=== PATIENT | male | born 1940 | race Caucasian/White ===

== ENCOUNTER 2016-10-06 14:55 | Inpatient (IN) | payer OTHER ==
[~2016-10-06] VITALS: Ht 177.8 cm; Wt 110.1 kg
[~2016-10-06 14:55] MED LIST: omega red PO
[2016-10-06] MEDS ORDERED: ONDANSETRON INJ 2 MG/ML 2 ML VIAL IV STA (15:29)
[2016-10-06] MEDS ORDERED: SODIUM CHLORIDE 0.9% 1000ML 1,000 ML IV STA (15:29)
--- NOTE | 2016-10-06 15:47 | DIAGNOSTIC IMAGING REPORT ---
CHEST ONE VIEW PORTABLE CLINICAL HISTORY: Cough. COMPARISON STUDY: Chest radiograph August 01, 2015. FINDINGS: There is no pneumothorax or pleural effusion. Left lower lung consolidation is present. Mild cardiomegaly is unchanged. Apparent right infrahilar opacity is noted. IMPRESSION: Left lower lung consolidation suggestive of pneumonia. Radiographic follow up to ensure resolution is recommended. Equivocal right infrahilar opacity. Electronically signed by: Hernando Vargas M.D. 10/06/2016 3:46 PM Dictated Date/Time: 10/06/2016 3:45 PM
[2016-10-06 16:00] LABS: BASO % 0.1 %; BASO ABS # 0.02 K/uL (0-0.2); COMPLETE YES; EOS % 0.3 %; HEMATOCRIT 42.6 % (42-52); IG% 0.3 %; LYMPH % 5.3 %; LYMPH ABS # 0.85 K/uL (1.2-3.4); MEAN CORPUSCULAR HEMOGLOBIN 28.5 pg (25-34); MEAN CORPUSCULAR HGB CONC 34.3 g/dl (32-36); MEAN PLATELET VOLUME 8.8 fL (7.4-10.4); MONO % 7.2 %; NEUT % 86.8 %; PLATELET COUNT 193 K/uL (130-400); RED BLOOD COUNT 5.13 M/uL (4.7-6.1); WHITE BLOOD COUNT 15.96 K/uL (4.8-10.8)
--- NOTE | 2016-10-06 16:15 | DIAGNOSTIC IMAGING REPORT ---
CT HEAD WITHOUT CONTRAST (CT) CLINICAL HISTORY: Headache, dizziness, confusion. Nausea. COMPARISON STUDY: No previous studies for comparison. TECHNIQUE: Axial CT of the brain is performed from the vertex to the skull base. IV contrast was not administered for this examination. CT DOSE: FINDINGS: No intra or extra-axial mass lesions are visualized. There is no CT evidence of acute cortical infarction. There is no evidence of midline shift. There is no acute hemorrhage. No calvarial fractures are visualized. There are patchy white matter hypodensities likely on a small vessel basis. There is no evidence of pathologic ventricular dilatation. There is no evidence of acute sinusitis There is a tortuous right vertebral artery with mild secondary mass effect on the craniocervical junction. IMPRESSION: No acute intracranial findings Electronically signed by: Duane Prado M.D. 10/06/2016 4:14 PM Dictated Date/Time: 10/06/2016 4:12 PM
[2016-10-06 16:16] LABS: ALT/SGPT 27 U/L (12-78); AST/SGOT 22 U/L (15-37); BLOOD UREA NITROGEN 21 mg/dl (7-18); BUN/CREATININE RATIO 13.8 (10-20); CALCIUM 8.4 mg/dl (8.5-10.1); CARBON DIOXIDE 24 mmol/L (21-32); CHLORIDE 108 mmol/L (98-107); GLUCOSE 105 mg/dl (70-99); SODIUM 141 mmol/L (136-145)
[2016-10-06 16:19] LABS: ALKALINE PHOSPHATASE 101 U/L (45-117)
--- NOTE | 2016-10-06 16:21 | DIAGNOSTIC IMAGING REPORT ---
CT SCAN OF THE ABDOMEN AND PELVIS WITHOUT IV CONTRAST CLINICAL HISTORY: Generalized abdominal pain status post colonoscopy. COMPARISON STUDY: No priors. TECHNIQUE: CT scan of the abdomen and pelvis is performed from the lung bases to the proximal femora. Images are reviewed in the axial, sagittal, and coronal planes. IV contrast was not administered for this examination. Automated dose control exposure was utilized. CT DOSE: 2027.78 mGy.cm FINDINGS: Lung bases: The heart is mildly enlarged and without pericardial effusion. There are coronary artery calcifications. There is patchy airspace consolidation at the left lung base. Dependent atelectasis is seen at the right lung base. No pleural effusion is identified. There is a small hiatal hernia. Liver: The unenhanced liver is normal in size and contour. The liver demonstrates diffusely diminished attenuation consistent with hepatic steatosis. Fatty sparing is identified adjacent to the gallbladder fossa. There is no intrahepatic biliary ductal dilatation. Gallbladder: Small calcified gallstones are observed. There is no CT evidence of acute cholecystitis. Spleen: Normal in size and attenuation. Pancreas: The unenhanced pancreas is moderately atrophic and grossly unremarkable. Adrenal glands: Unremarkable. Kidneys: The unenhanced kidneys are atrophic and without hydronephrosis. There are no renal calculi identified. There are bilateral renal cysts. The largest arises from the left lower pole and measures up to 8 cm. Abdominal vasculature: The abdominal aorta is normal in course and caliber noting moderate to advanced atherosclerotic calcification. Bowel: The small bowel and colon are normal in course and caliber. There is advanced sigmoid diverticulosis without CT evidence of acute diverticulitis. Mild diverticular disease is seen throughout the remainder of the colon. The appendix is well-visualized and normal. Peritoneum: There is no intraperitoneal free air or abdominal ascites. There is a fat-containing umbilical hernia. Lymphadenopathy: None. Pelvic viscera: The prostate gland is markedly enlarged and heterogeneous, measuring 7.3 cm in transverse diameter. There is median lobe hypertrophy. The bladder wall is thickened and trabeculated and there are numerous small bladder diverticula indicating chronic obstruction. There is a tiny fat-containing left inguinal hernia. Skeletal structures: The skeletal structures are osteopenic. There is mild lumbosacral spondylosis. Sclerotic change is noted in the sacroiliac joints. No lytic or blastic lesions are seen. IMPRESSION: 1. There is patchy airspace consolidation at the left lung base, likely representing pneumonia/aspiration pneumonitis. 2. There are no acute infectious or inflammatory findings in the abdomen or pelvis. 3. Hepatic steatosis. 4. Cholelithiasis. 5. Advanced sigmoid diverticulosis without CT evidence of acute diverticulitis. 6. Marked prostatomegaly with evidence of chronic bladder outlet obstruction. Follow-up with serum PSA level assessment is recommended. 7. Additional findings as above. Electronically signed by: Flash Gonzales M.D. 10/06/2016 4:20 PM Dictated Date/Time: 10/06/2016 4:13 PM
[2016-10-06] MEDS ORDERED: KRIL1CAP7 PO (16:40)
[2016-10-06] MEDS ORDERED: PIPERACILLIN/TAZOBACTAM 3.375 GM/100ML D5W IV STA (16:42)
[2016-10-06 16:50] LABS: URINE APPEARANCE CLEAR (CLEAR); URINE BILIRUBIN NEG (NEG); URINE COLOR YELLOW; URINE NITRITE NEG (NEG); URINE PH 5.5 (4.5-7.5); URINE SPECIFIC GRAVITY 1.021 (1.000-1.030); UROBILINOGEN NEG (NEG)
[2016-10-06 16:53] LABS: MANUAL MICROSCOPIC REQUIRED? NO; REVIEW REQ? NO
[2016-10-06] MEDS ORDERED: ACETAMINOPHEN 325 MG TAB PO PRN (18:00)
[2016-10-06] MEDS ORDERED: ONDANSETRON INJ 2 MG/ML 2 ML VIAL IV PRN (18:00)
--- NOTE | 2016-10-06 18:22 | EMERGENCY ROOM VISIT NOTE ---
History Report prepared by Marco: Romelia Cohen Under the Supervision of: Dr. Lupe Hatch M.D. First contact with patient: 15:16 Chief Complaint: GI ASSESSMENT Stated Complaint: COLONOSCOPY THIS MORNING, NOT FEELING WELL,HIGH BP Nursing Triage Summary: triage note: pt reports he had a colonoscopy and since getting home at 1230 he has been dizzy and has had chills. pt reports generalized abd and nausea. History of Present Illness The patient is a 76 year old male who presents to the Emergency Room with complaints of constant raw abdominal pain beginning 3 hours ago. The patient states that he had a colonoscopy this morning and since getting home he has been feeling dizziness, chills, and a dull headache. He reports that he has had a colonoscopy before and did not have similar symptoms. The patient's family notes that he had polyps removed and had some bleeding 1 week after his previous colonoscopy. The patient reports that he vomited last night when he was prepping for the colonoscopy and has had a productive pink cough since yesterday. He states that he called his doctor before coming in today and they told him that he was coughing a lot during the colonoscopy and are concerned that he may have aspirated. He states that his last normal bowel movement was yesterday but he did go to the bathroom once after his colonoscopy and it was mostly blood. He estimates that there were 2-3 tablespoons of blood and he has not gone to the bathroom since then. The patient notes that he is not on blood thinners and has not had an appendectomy or cholecystectomy. The patient's daughter notes that the patient has seemed confused since the colonoscopy and struggled to complete everyday tasks such as getting out of the car and getting gas. The patient denies any nausea, chest pain, shortness of breath, weakness, and numbness. Source of History: patient Onset: 3 hours ago Position: abdomen Quality: other (raw) Timing: constant Associated Symptoms: + chills, + cough, + headache, No SOB, No chest pain, No nausea, No numbness, No weakness Note: Pt complains of dizziness and an episode of bloody stool. Review of Systems See HPI for pertinent positives & negatives. A total of 10 systems reviewed and were otherwise negative. Past Medical & Surgical Medical Problems: (1) Aspiration pneumonia (2) BPH (benign prostatic hyperplasia) (3) HLD (hyperlipidemia) (4) HTN (hypertension) (5) UGIB (upper gastrointestinal bleed) Family History No pertinent family history stated. Social History Smoking Status: Former Smoker Alcohol Use: none Drug Use: none Occupation Status: retired Current/Historical Medications Scheduled Carvedilol (Coreg), 1 TAB PO BID Esomeprazole Magnesium (Nexium), 40 MG PO DAILY Finasteride (Proscar), 1 TAB PO DAILY Lisinopril (Zestril), 2.5 MG PO DAILY Simvastatin (Zocor), 1 TAB PO HS Tamsulosin Hcl (Flomax), 1 CAP PO BID Allergies Coded Allergies: Iodinated Diagnostic Agents (Verified Allergy, Mild, Skin peels off, ) Physical Exam Vital Signs Date Time Temp Pulse Resp B/P Pulse Ox O2 Delivery O2 Flow Rate FiO2 10/06/16 18:07 97 32 125/68 94 2.0 10/06/16 16:34 102 10/06/16 16:29 102 36 117/67 93 Nasal Cannula 2.0 10/06/16 15:56 Room Air 2.0 10/06/16 15:54 88 Room Air 10/06/16 15:01 36.9 119 20 119/66 94 Room Air Physical Exam GENERAL: sitting up in bed, alert, well appearing, well nourished, no distress, non-toxic EYE EXAM: normal conjunctiva, PERRL and EOM's intact OROPHARYNX: no exudate, no erythema, lips, buccal mucosa, and tongue normal and mucous membranes are moist NECK: supple, no nuchal rigidity, no adenopathy, non-tender LUNGS: Clear to auscultation. Normal chest wall mechanics HEART: no murmurs, S1 normal and S2 normal ABDOMEN: abdomen soft, non-tender, normo-active bowel sounds, no masses, no rebound or guarding. BACK: Back is symmetrical on inspection and there is no deformity, no midline tenderness, no CVA tenderness. SKIN: no rashes and no bruising UPPER EXTREMITIES: upper extremities are grossly normal. LOWER EXTREMITIES: No pitting edema. NEURO EXAM: Normal sensorium, cranial nerves II-XII intact, normal speech, no weakness of arms, no weakness of legs. No drift. Finger to nose intact. Gross sensation intact. Medical Decision & Procedures ER Provider Diagnostic Interpretation: Radiology results as stated below per my review and the radiologist's interpretation: CT HEAD WITHOUT CONTRAST (CT) FINDINGS: No intra or extra-axial mass lesions are visualized. There is no CT evidence of acute cortical infarction. There is no evidence of midline shift. There is no acute hemorrhage. No calvarial fractures are visualized. There are patchy white matter hypodensities likely on a small vessel basis. There is no evidence of pathologic ventricular dilatation. There is no evidence of acute sinusitis There is a tortuous right vertebral artery with mild secondary mass effect on the craniocervical junction. IMPRESSION: No acute intracranial findings Electronically signed by: Duane Prado M.D. 10/06/2016 4:14 PM Dictated Date/Time: 10/06/2016 4:[address] SCAN OF THE ABDOMEN AND PELVIS WITHOUT IV CONTRAST FINDINGS: Lung bases: The heart is mildly enlarged and without pericardial effusion. There are coronary artery calcifications. There is patchy airspace consolidation at the left lung base. Dependent atelectasis is seen at the right lung base. No pleural effusion is identified. There is a small hiatal hernia. Liver: The unenhanced liver is normal in size and contour. The liver demonstrates diffusely diminished attenuation consistent with hepatic steatosis. Fatty sparing is identified adjacent to the gallbladder fossa. There is no intrahepatic biliary ductal dilatation. Gallbladder: Small calcified gallstones are observed. There is no CT evidence of acute cholecystitis. Spleen: Normal in size and attenuation. Pancreas: The unenhanced pancreas is moderately atrophic and grossly unremarkable. Adrenal glands: Unremarkable. Kidneys: The unenhanced kidneys are atrophic and without hydronephrosis. There are no renal calculi identified. There are bilateral renal cysts. The largest arises from the left lower pole and measures up to 8 cm. Abdominal vasculature: The abdominal aorta is normal in course and caliber noting moderate to advanced atherosclerotic calcification. Bowel: The small bowel and colon are normal in course and caliber. There is advanced sigmoid diverticulosis without CT evidence of acute diverticulitis. Mild diverticular disease is seen throughout the remainder of the colon. The appendix is well-visualized and normal. Peritoneum: There is no intraperitoneal free air or abdominal ascites. There is a fat-containing umbilical hernia. Lymphadenopathy: None. Pelvic viscera: The prostate gland is markedly enlarged and heterogeneous, measuring 7.3 cm in transverse diameter. There is median lobe hypertrophy. The bladder wall is thickened and trabeculated and there are numerous small bladder diverticula indicating chronic obstruction. There is a tiny fat-containing left inguinal hernia. Skeletal structures: The skeletal structures are osteopenic. There is mild lumbosacral spondylosis. Sclerotic change is noted in the sacroiliac joints. No lytic or blastic lesions are seen. IMPRESSION: 1. There is patchy airspace consolidation at the left lung base, likely representing pneumonia/aspiration pneumonitis. 2. There are no acute infectious or inflammatory findings in the abdomen or pelvis. 3. Hepatic steatosis. 4. Cholelithiasis. 5. Advanced sigmoid diverticulosis without CT evidence of acute diverticulitis. 6. Marked prostatomegaly with evidence of chronic bladder outlet obstruction. Follow-up with serum PSA level assessment is recommended. 7. Additional findings as above. Electronically signed by: Flash Gonzales M.D. 10/06/2016 4:20 PM Dictated Date/Time: 10/06/2016 4:13 PM CHEST ONE VIEW PORTABLE FINDINGS: There is no pneumothorax or pleural effusion. Left lower lung consolidation is present. Mild cardiomegaly is unchanged. Apparent right infrahilar opacity is noted. IMPRESSION: Left lower lung consolidation suggestive of pneumonia. Radiographic follow up to ensure resolution is recommended. Equivocal right infrahilar opacity. Electronically signed by: Hernando Vargas M.D. 10/06/2016 3:46 PM Dictated Date/Time: 10/06/2016 3:45 PM Laboratory Results 10/06/16 15:43 Red Blood Count 5.13, Mean Corpuscular Volume 83.0, Mean Corpuscular Hemoglobin 28.5, Mean Corpuscular Hemoglobin Concent 34.3, Mean Platelet Volume 8.8, Neutrophils (%) (Auto) 86.8, Lymphocytes (%) (Auto) 5.3, Monocytes (%) (Auto) 7.2, Eosinophils (%) (Auto) 0.3, Basophils (%) (Auto) 0.1, Neutrophils # (Auto) 13.84, Lymphocytes # (Auto) 0.85, Monocytes # (Auto) 1.15, Eosinophils # (Auto) 0.05, Basophils # (Auto) 0.02 10/06/16 15:43 Test 10/06/16 15:43 10/06/16 16:30 10/06/16 17:47 White Blood Count 15.96 K/uL (4.8-10.8) Red Blood Count 5.13 M/uL (4.7-6.1) Hemoglobin 14.6 g/dL (14.0-18.0) Hematocrit 42.6 % (42-52) Mean Corpuscular Volume 83.0 fL (80-100) Mean Corpuscular Hemoglobin 28.5 pg (25-34) Mean Corpuscular Hemoglobin Concent 34.3 g/dl (32-36) Platelet Count 193 K/uL (130-400) Mean Platelet Volume 8.8 fL (7.4-10.4) Neutrophils (%) (Auto) 86.8 % Lymphocytes (%) (Auto) 5.3 % Monocytes (%) (Auto) 7.2 % Eosinophils (%) (Auto) 0.3 % Basophils (%) (Auto) 0.1 % Neutrophils # (Auto) 13.84 K/uL (1.4-6.5) Lymphocytes # (Auto) 0.85 K/uL (1.2-3.4) Monocytes # (Auto) 1.15 K/uL (0.11-0.59) Eosinophils # (Auto) 0.05 K/uL (0-0.5) Basophils # (Auto) 0.02 K/uL (0-0.2) RDW Standard Deviation 43.7 fL (36.4-46.3) RDW Coefficient of Variation 14.5 % (11.5-14.5) Immature Granulocyte % (Auto) 0.3 % Immature Granulocyte # (Auto) 0.05 K/uL (0.00-0.02) Anion Gap 9.0 mmol/L (3-11) Est Creatinine Clear Calc Drug Dose 52.1 ml/min Estimated GFR () 51.7 Estimated GFR (Non- 44.6 BUN/Creatinine Ratio 13.8 (10-20) Calcium Level 8.4 mg/dl (8.5-10.1) Total Bilirubin 0.5 mg/dl (0.2-1) Direct Bilirubin < 0.1 mg/dl (0-0.2) Aspartate Amino Transf (AST/SGOT) 22 U/L (15-37) Alanine Aminotransferase (ALT/SGPT) 27 U/L (12-78) Alkaline Phosphatase 101 U/L (45-117) Total Protein 7.7 gm/dl (6.4-8.2) Albumin 3.6 gm/dl (3.4-5.0) Lipase 239 U/L (73-393) Urine Color YELLOW Urine Appearance CLEAR (CLEAR) Urine pH 5.5 (4.5-7.5) Urine Specific [place] 1.021 (1.000-1.030) Urine Protein TRACE (NEG) Urine Glucose (UA) NEG (NEG) Urine Ketones NEG (NEG) Urine Occult Blood NEG (NEG) Urine Nitrite NEG (NEG) Urine Bilirubin NEG (NEG) Urine Urobilinogen NEG (NEG) Urine Leukocyte Esterase NEG (NEG) Urine WBC (Auto) 1-5 /hpf (0-5) Urine RBC (Auto) 0-4 /hpf (0-4) Urine Hyaline Casts (Auto) 1-5 /lpf (0-5) Urine Epithelial Cells (Auto) 10-20 /lpf (0-5) Urine Bacteria (Auto) NEG (NEG) Laboratory results per my review. Medications Administered Medications (Trade) Dose Ordered Sig/Eddie Route Start Time Stop Time Status Last Admin Dose Admin Sodium Chloride (Nss 1000ml) 1,000 ml @ 999 mls/hr Q1H1M STAT IV 10/06/16 15:29 10/06/16 16:29 DC 10/06/16 15:49 999 MLS/HR Ondansetron HCl (Zofran Inj) 4 mg NOW STAT IV 10/06/16 15:29 10/06/16 15:32 DC 10/06/16 15:50 4 MG Piperacillin Sod/ Tazobactam Sod (Zosyn Iv) 3.375 gm NOW STAT IV 10/06/16 16:42 10/06/16 16:43 DC 10/06/16 17:01 3.375 GM ECG Indication: abdominal pain Rate (beats per minute): 111 Rhythm: sinus tachycardia Findings: LBBB, left axis deviation, other (normal intervals) Comparison ECG Date: 25-JAN-2016 Change: no significant change ED Course ED COURSE: Vital signs were reviewed and showed tachycardia The patients medical record was reviewed The above diagnostic studies were performed and reviewed. ED treatments and interventions as stated above. 1516: The patient was evaluated in room B5. A complete history and physical examination was performed. 1529: Zofran Inj 4mg IV, Sodium Chloride 1000 ml @ 999 mls/hr IV. 1559: The patient had a 3mm polyp removed and there were several biopsy sites per review of the patient's colonoscopy. 1642: Zosyn IV 3.375gm IV. 1658: I updated and reevaluated the patient. 1716: I reviewed the patient's case with Bhumika Granda. She will evaluate the patient for further management. 1726: Upon reevaluation, the patient is doing well.I discussed my findings with the patient and he understands and agrees with the treatment plan. Based on the patients age, coexisting illnesses, exam and lab findings the decision to treat as an inpatient was made. The patient remained stable while under my care. The patient will be evaluated for further management. Medical Decision Differential diagnoses includes but is not limited to gastritis, peptic ulcer disease, GERD, gallbladder disease, pancreatitis, small bowel obstruction, acute coronary syndrome, pericarditis, ischemic bowel, irritable bowel disease, irritable bowel syndrome, appendicitis, diverticulitis, malignancy, hernia, urinary tract infection, torsion, perforation, trauma, infectious. Medication Reconciliation: I attest that I have personally reviewed the patient' s current medication list. Patient is a 76-year-old male who had a colonoscopy performed by Dr. Contreras from [facility] surgery and had one polyp removed along with several biopsies. Vitals show a tachycardia and mild hypoxia. There was reported coughing throughout the procedure and there is question of aspiration. Chest x-ray and CT of the abdomen does support aspiration pneumonia. I favor this likely cause of symptoms. He did have one bowel movement with 3 large teaspoons of blood. This in combination with the aspiration pneumonia, tachycardia and hypoxia; I felt he would benefit from admission/observation overnight. He was given IV antibiotics and fluids and admitted to internal medicine. Consults Time Called: 170 Consulting Physician: Bhumika Kaiser Returned Call: [phone] I reviewed the patient's case with Bhumika Granda. She will evaluate the patient for further management. Impression Primary Impression: Colonoscopy causing post-procedural bleeding Additional Impression: Aspiration pneumonia Scribe Attestation The scribe's documentation has been prepared under my direction and personally reviewed by me in its entirety. I confirm that the note above accurately reflects all work, treatment, procedures, and medical decision making performed by me. Departure Information Dispostion Being Evaluated By Hospitalist Referrals Jasmin Ross D.O. (PCP) Patient Instructions [facility] Problem Qualifiers Additional Impression: Aspiration pneumonia Aspiration pneumonia type: unspecified Laterality: left Lung location: lower lobe of lung Qualified Codes: J69.0 - Pneumonitis due to inhalation of food and vomit
[2016-10-06 18:33] VITALS: O2SAT 94; Ht 177.8 cm; Wt 110.1 kg
[2016-10-06] MEDS ORDERED: PIPERACILL/TAZOBAC CONSULT ACTIVE PRN (19:00)
[2016-10-06] MEDS ORDERED: LISI-729 PO (19:53)
[2016-10-06] MEDS ORDERED: ASPI81TA28 PO (19:54)
[2016-10-06] MEDS ORDERED: CARV12.5 PO (19:54)
[2016-10-06] MEDS ORDERED: SIMV10TA2 PO (19:54)
[2016-10-06 19:55] VITALS: BP 112/64; PULSE 88; TEMP 36.5; O2SAT 93
[2016-10-06] MEDS ORDERED: NIAC1TAB59 PO (19:55)
[2016-10-06] MEDS ORDERED: FINA5TAB4 PO (19:55)
[2016-10-06] MEDS ORDERED: NXM/40 PO (19:56)
[2016-10-06] MEDS ORDERED: CHOL20007 PO (19:56)
[2016-10-06] MEDS ORDERED: TAMS0.4C38 PO (19:56)
[2016-10-06] MEDS ORDERED: DOCU-94 PO (20:02)
[2016-10-06] MEDS: SODIUM CHLORIDE 0.9% 1000ML 1,000 ML IV SCH (20:13)
[2016-10-06] MEDS: CARVEDILOL 12.5 MG TAB PO SCH (20:16)
[2016-10-06] MEDS: TAMSULOSIN HCL 0.4 MG CAP PO SCH (20:17)
[2016-10-06] MEDS: SIMVASTATIN 10 MG TAB PO SCH ×2 (20:18→21:39)
--- NOTE | 2016-10-06 20:44 | History and Physical ---
History & Physical Date & Time of Service: October 06, 2016 ~ 17:30 Chief Complaint: Cough Primary Care Physician: Jasmin Ross D.O. History of Present Illness 76 year old male who presents to the ER with cough. Patient underwent a colonoscopy today for polyp follow up. Patient reports that while completing the prep yesterday his stomach felt very full. He reports he felt nauseous and had 3 episodes of vomiting. He reports being up most of the night due to persistent coughing. He was able to have the procedure done however was told he had a lot of coughing during the procedure as well. Patient reports he went home and started to feel poorly. He reports the cough was productive for a blood tinged mucous. He reports a mild frontal headache and mild generalized abdominal pain. He felt chilled but did not take his temperature. He denies chest pain or shortness of breath. No further vomiting. He denies nausea. No lightheadedness, dizziness, diaphoresis, or syncopal event. He reports chronic urinary frequency and hesitancy which is unchanged. In the ER, patient was hypoxic on room air at 88% which improved with 2L oxygen via NC. CXR is showing LLL consolidation. CT abd/pelvis is negative for acute findings. Creat is found to be 1.5 (normal baseline). WBC 15K. He was also tachycardic and tachypneic. He was given IVF, IV Zosyn, and Zofran. Past Medical/Surgical History Medical Problems: (1) BPH (benign prostatic hyperplasia) Status: Chronic (2) HLD (hyperlipidemia) Status: Chronic (3) HTN (hypertension) Status: Chronic Family History Hypertension Social History Smoking Status: Former Smoker Alcohol Use: none Allergies Coded Allergies: Iodinated Diagnostic Agents (Verified Allergy, Mild, Skin peels off, ) Home Medications Scheduled Carvedilol (Coreg), 1 TAB PO BID Esomeprazole Magnesium (Nexium), 40 MG PO DAILY Finasteride (Proscar), 1 TAB PO DAILY Lisinopril (Zestril), 2.5 MG PO DAILY Simvastatin (Zocor), 1 TAB PO HS Tamsulosin Hcl (Flomax), 1 CAP PO BID Review of Systems ROS per HPI, all other systems reviewed and negative Physical Exam Vital Signs Date Time Temp Pulse Resp B/P Pulse Ox O2 Delivery O2 Flow Rate FiO2 10/06/16 19:55 36.5 88 18 112/64 93 Nasal Cannula 2.0 10/06/16 19:33 90 24 115/63 94 2.0 10/06/16 19:33 90 24 115/63 94 10/06/16 18:33 94 Nasal Cannula 2.0 10/06/16 18:07 97 32 125/68 94 2.0 10/06/16 16:34 102 10/06/16 16:29 102 36 117/67 93 Nasal Cannula 2.0 10/06/16 15:56 Room Air 2.0 10/06/16 15:54 88 Room Air 10/06/16 15:01 36.9 119 20 119/66 94 Room Air General Appearance: no apparent distress Head: normocephalic Eyes: normal inspection ENT: hearing grossly normal Neck: supple, no JVD Respiratory/Chest: no respiratory distress (able to speak in full sentenes), + crackles (left mid and lower lung rocha) Cardiovascular: no edema, normal peripheral pulses, + tachycardia (HR in the 90s-low 100s, regular rhythm) Abdomen/GI: normal bowel sounds, non tender, soft, + distended Extremities/Musculoskelatal: normal inspection, no calf tenderness Neurologic/Psych: no motor/sensory deficits, alert, normal mood/affect, oriented x 3 Skin: normal color, warm/dry Diagnostics Laboratory Results Results Past 24 Hours Test 10/06/16 15:43 10/06/16 16:30 10/06/16 18:24 Range/Units White Blood Count 15.96 4.8-10.8 K/uL Red Blood Count 5.13 4.7-6.1 M/uL Hemoglobin 14.6 14.0-18.0 g/dL Hematocrit 42.6 42-52 % Mean Corpuscular Volume 83.0 80-100 fL Mean Corpuscular Hemoglobin 28.5 25-34 pg Mean Corpuscular Hemoglobin Concent 34.3 32-36 g/dl Platelet Count 193 130-400 K/uL Mean Platelet Volume 8.8 7.4-10.4 fL Neutrophils (%) (Auto) 86.8 % Lymphocytes (%) (Auto) 5.3 % Monocytes (%) (Auto) 7.2 % Eosinophils (%) (Auto) 0.3 % Basophils (%) (Auto) 0.1 % Neutrophils # (Auto) 13.84 1.4-6.5 K/uL Lymphocytes # (Auto) 0.85 1.2-3.4 K/uL Monocytes # (Auto) 1.15 0.11-0.59 K/uL Eosinophils # (Auto) 0.05 0-0.5 K/uL Basophils # (Auto) 0.02 0-0.2 K/uL RDW Standard Deviation 43.7 36.4-46.3 fL RDW Coefficient of Variation 14.5 11.5-14.5 % Immature Granulocyte % (Auto) 0.3 % Immature Granulocyte # (Auto) 0.05 0.00-0.02 K/uL Sodium Level 141 136-145 mmol/L Potassium Level 4.0 3.5-5.1 mmol/L Chloride Level 108 98-107 mmol/L Carbon Dioxide Level 24 21-32 mmol/L Anion Gap 9.0 3-11 mmol/L Blood Urea Nitrogen 21 7-18 mg/dl Creatinine 1.50 0.60-1.40 mg/dl Est Creatinine Clear Calc Drug Dose 52.1 ml/min Estimated GFR () 51.7 Estimated GFR (Non- 44.6 BUN/Creatinine Ratio 13.8 10-20 Random Glucose 105 70-99 mg/dl Calcium Level 8.4 8.5-10.1 mg/dl Total Bilirubin 0.5 0.2-1 mg/dl Direct Bilirubin < 0.1 0-0.2 mg/dl Aspartate Amino Transf (AST/SGOT) 22 15-37 U/L Alanine Aminotransferase (ALT/SGPT) 27 12-78 U/L Alkaline Phosphatase 101 45-117 U/L Total Protein 7.7 6.4-8.2 gm/dl Albumin 3.6 3.4-5.0 gm/dl Lipase 239 73-393 U/L Urine Color YELLOW Urine Appearance CLEAR CLEAR Urine pH 5.5 4.5-7.5 Urine Specific [place] 1.021 1.000-1.030 Urine Protein TRACE NEG Urine Glucose (UA) NEG NEG Urine Ketones NEG NEG Urine Occult Blood NEG NEG Urine Nitrite NEG NEG Urine Bilirubin NEG NEG Urine Urobilinogen NEG NEG Urine Leukocyte Esterase NEG NEG Urine WBC (Auto) 1-5 0-5 /hpf Urine RBC (Auto) 0-4 0-4 /hpf Urine Hyaline Casts (Auto) 1-5 0-5 /lpf Urine Epithelial Cells (Auto) 10-20 0-5 /lpf Urine Bacteria (Auto) NEG NEG Lactic Acid Level 1.9 0.4-2.0 mmol/L Microbiology Results 10/06/16 Blood Culture, Received Pending 10/06/16 Blood Culture, Received Pending 10/06/16 MRSA DNA Surveillance Screen, Received Pending Diagnostic Radiology HEAD CT IMPRESSION: No acute intracranial findings CT ABD/PELVIS IMPRESSION: 1. There is patchy airspace consolidation at the left lung base, likely representing pneumonia/aspiration pneumonitis. 2. There are no acute infectious or inflammatory findings in the abdomen or pelvis. 3. Hepatic steatosis. 4. Cholelithiasis. 5. Advanced sigmoid diverticulosis without CT evidence of acute diverticulitis. 6. Marked prostatomegaly with evidence of chronic bladder outlet obstruction. Follow-up with serum PSA level assessment is recommended. 7. Additional findings as above. CXR IMPRESSION: Left lower lung consolidation suggestive of pneumonia. Radiographic follow up to ensure resolution is recommended. Equivocal right infrahilar opacity. Impression Assessment and Plan ACUTE HYPOXIC RESPIRATORY FAILURE DUE TO ASPIRATION PNEUMONIA - admit to med/surg - patient presenting with increasing cough x 1 day after vomiting while completing colonoscopy prep; found to be hypoxic on room air at 88%, improved with oxygen 2L via NC, CXR showing LLL consolidation suspicious for aspiration pneumonitis - likely aspiration from vomiting - s/p Zosyn in the ED, will continue with; check MRSA nasal swab and if positive will add Vanco - lactic acid normal at 1.9 - Prednisone 40mg x 5 days - patient reports blood tinged sputum - likely due to aspiration pneumonitis, hgb stable, continue to monitor - continue to monitor oxygenation, may need two step evaluation before discharge CHRIS - likely prerenal due to vomiting / colonoscopy prep - IVF, hold ACEi - follow up renal functions in AM HTN - BP controlled, continue carvedilol - holding lisinopril due to CHRIS BPH - continue finasteride and tamsulosin DVT PROPHYLAXIS - SCDs due to mild hemoptysis CODE STATUS - Patient is a full code as per my discussion with him. DISPO - In my clinical judgment this beneficiary meets acute admission criteria, established by [facility], that includes being hospitalized through two midnights. Advanced Directives Existing Living Will: No Existing Power of Reporting Coordinator: No VTE Prophylaxis VTE Risk Assessment Done? Y/N: Yes Risk Level: Moderate Note ATTENDING ADDENDUM Record reviewed. Patient interviewed and examined. Care coordinated with ADRIANA Manuel. Please refer to her documentation for patient's history. Briefly, 76-year-old male who developed nausea and vomiting during colonoscopy prep. After the procedure he experience abdominal distention, cough, chills. Came to the ED for evaluation. EXAM: General- no acute distress VS- as noted HEENT- anicteric Neck- no JVD Lungs- rales left base, mild wheezing Heart- regular Abdomen- slightly distended, bowel sounds present, soft, nontender Extremities- no pretibial edema or calf tenderness Neuro- alert DATA: Lab studies as noted. Chest x-ray demonstrated left lower lobe infiltrate ASSESSMENT AND PLAN: Aspiration pneumonia. IV antibiotic therapy with piperacillin/tazobactam. Short course of steroids. Please refer to DOMINIC Costello's documentation for discussion of other issues. Francisco Heatr MD .
[2016-10-06] MEDS: PIPERACILL/TAZOBAC IV 4.5 GM in DEXTROSE 5% 100ML IV SCH (21:31)
[2016-10-06 23:03] VITALS: BP 125/63; PULSE 81; TEMP 36.8; O2SAT 95
[2016-10-07] MEDS: SODIUM CHLORIDE 0.9% 1000ML 1,000 ML IV SCH ×2 (06:09→16:09)
[2016-10-07] MEDS: PIPERACILL/TAZOBAC IV 4.5 GM in DEXTROSE 5% 100ML IV SCH ×3 (06:10→22:12)
[2016-10-07 06:41] VITALS: BP 135/65; PULSE 69; TEMP 36.6; O2SAT 95
[2016-10-07 06:51] LABS: HEMATOCRIT 40.5 % (42-52); MEAN CELL VOLUME 84.2 fL (80-100); MEAN CORPUSCULAR HGB CONC 32.1 g/dl (32-36); PLATELET COUNT 177 K/uL (130-400); RED BLOOD COUNT 4.81 M/uL (4.7-6.1); WHITE BLOOD COUNT 18.31 K/uL (4.8-10.8)
[2016-10-07 07:29] LABS: CALCIUM 8.2 mg/dl (8.5-10.1); CREATININE 1.4 mg/dl (0.60-1.40); POTASSIUM 4.3 mmol/L (3.5-5.1)
[2016-10-07 08:00] VITALS: O2SAT 95
[2016-10-07] MEDS: PANTOprazole SOD 40 MG TAB PO SCH (08:09)
[2016-10-07] MEDS: FINASTERIDE 5 MG TAB PO SCH (08:09)
[2016-10-07] MEDS: CARVEDILOL 12.5 MG TAB PO SCH ×2 (08:49→19:49)
[2016-10-07] MEDS: TAMSULOSIN HCL 0.4 MG CAP PO SCH ×2 (08:49→19:49)
[2016-10-07 15:47] VITALS: BP 124/65; PULSE 66; TEMP 36.2; O2SAT 95
[2016-10-07] MEDS: SIMVASTATIN 10 MG TAB PO SCH (19:49)
[2016-10-07 19:50] VITALS: BP 130/73; PULSE 73
--- NOTE | 2016-10-07 21:48 | Progress Note ---
Medicine Progress Note Date & Time of Visit: Oct 07, 2016 at 16:50 . Subjective Persistent cough productive of blood-tinged sputum. No fever. No shortness of breath. No chest pain. No abdominal pain, nausea, vomiting. No further hematochezia. . Objective Last 8 Hrs Date Time Temp Pulse Resp B/P (MAP) Pulse Ox O2 Delivery O2 Flow Rate FiO2 10/07/16 20:00 Room Air 10/07/16 19:50 73 130/73 (92) 10/07/16 16:00 Room Air 2.0 10/07/16 15:47 36.2 66 20 124/65 (84) 95 Room Air Physical Exam: General- sitting in chair; no distress Lungs- rales left base, mild wheezing Heart- regular rate and rhythm Abdomen- normal bowel sounds, soft, nontender Extremities- no pretibial edema or calf tenderness Neuro- alert . Laboratory Results: Last 24 Hours Test 10/07/16 06:26 White Blood Count 18.31 K/uL Red Blood Count 4.81 M/uL Hemoglobin 13.0 g/dL Hematocrit 40.5 % Mean Corpuscular Volume 84.2 fL Mean Corpuscular Hemoglobin 27.0 pg Mean Corpuscular Hemoglobin Concent 32.1 g/dl RDW Standard Deviation 44.7 fL RDW Coefficient of Variation 14.5 % Platelet Count 177 K/uL Mean Platelet Volume 9.0 fL Sodium Level 141 mmol/L Potassium Level 4.3 mmol/L Chloride Level 109 mmol/L Carbon Dioxide Level 25 mmol/L Anion Gap 7.0 mmol/L Blood Urea Nitrogen 21 mg/dl Creatinine 1.40 mg/dl Est Creatinine Clear Calc Drug Dose 55.8 ml/min Estimated GFR () 56.2 Estimated GFR (Non- 48.5 BUN/Creatinine Ratio 15.0 Random Glucose 139 mg/dl Calcium Level 8.2 mg/dl Assessment & Plan ASPIRATION PNEUMONIA Afebrile. Oxygenating well. Continue piperacillin/tazobactam and prednisone. HYPERTENSION Continue lisinopril and carvedilol. BPH History of BPH managed with finasteride and tamsulosin. CT of abdomen and pelvis revealed marked prostatomegaly with heterogeneous appearance, thickening and trabeculation of bladder wall, bladder diverticuli. Recommend outpatient follow-up with Urology. VTE PROPHYLAXIS No anticoagulants due to colonoscopy with subsequent rectal bleeding. SCD's. Ambulate. DISPOSITION Expected discharge to home. Medical follow-up with Dr. Ross. . Current Inpatient Medications: Current Inpatient Medications Medications (Trade) Dose Ordered Sig/Eddie Route Start Time Stop Time Status Last Admin Dose Admin Acetaminophen (Tylenol Tab) 650 mg Q4H PRN PO 10/06/16 18:00 11/05/16 17:59 Ondansetron HCl (Zofran Inj) 4 mg Q6H PRN IV 10/06/16 18:00 11/05/16 17:59 Piperacillin Sod/ Tazobactam Sod (Consult) 1 ea UD PRN N/A 10/06/16 19:00 11/05/16 18:59 Sodium Chloride 1,000 ml @ 100 mls/hr Q10H IV 10/06/16 20:00 11/05/16 19:59 10/07/16 16:09 100 MLS/HR Prednisone (PredniSONE TAB) 40 mg HS PO 10/06/16 21:00 10/10/16 22:01 10/07/16 19:49 40 MG Carvedilol (Coreg Tab) 12.5 mg BID PO 10/06/16 20:00 11/05/16 20:59 10/07/16 19:49 12.5 MG Finasteride (Proscar Tab) 5 mg DAILY PO 10/07/16 08:00 11/06/16 08:59 10/07/16 08:09 5 MG Simvastatin (Zocor Tab) 10 mg HS PO 10/06/16 21:00 11/05/16 20:59 10/07/16 19:49 10 MG Tamsulosin HCl (Flomax Cap) 0.4 mg BID PO 10/06/16 20:00 11/05/16 20:59 10/07/16 19:49 0.4 MG Pantoprazole Sodium (Protonix Tab) 40 mg QAM PO 10/07/16 08:00 11/06/16 08:59 10/07/16 08:09 40 MG Piperacillin Sod/ Tazobactam Sod 4.5 gm/Dextrose 120 ml @ 30 mls/hr Q8H IV 10/06/16 22:00 10/13/16 21:59 10/07/16 13:26 30 MLS/HR
[2016-10-08 00:13] VITALS: BP 128/74; PULSE 72; TEMP 36.5; O2SAT 95
[2016-10-08] MEDS: SODIUM CHLORIDE 0.9% 1000ML 1,000 ML IV SCH ×3 (02:09→21:27)
[2016-10-08] MEDS: PIPERACILL/TAZOBAC IV 4.5 GM in DEXTROSE 5% 100ML IV SCH ×3 (06:04→21:27)
[2016-10-08 06:27] LABS: HEMATOCRIT 38.3 % (42-52); MEAN CELL VOLUME 84.2 fL (80-100); MEAN CORPUSCULAR HEMOGLOBIN 27.9 pg (25-34); MEAN CORPUSCULAR HGB CONC 33.2 g/dl (32-36); MEAN PLATELET VOLUME 8.7 fL (7.4-10.4); PLATELET COUNT 168 K/uL (130-400); RED BLOOD COUNT 4.55 M/uL (4.7-6.1); WHITE BLOOD COUNT 14.47 K/uL (4.8-10.8)
[2016-10-08 07:02] LABS: BUN/CREATININE RATIO 14.3 (10-20); CALCIUM 8.6 mg/dl (8.5-10.1); CREATININE 1.4 mg/dl (0.60-1.40); POTASSIUM 4.8 mmol/L (3.5-5.1)
[2016-10-08 07:32] VITALS: BP 154/81; PULSE 63; TEMP 36.3; O2SAT 97
[2016-10-08] MEDS: PANTOprazole SOD 40 MG TAB PO SCH (07:43)
[2016-10-08] MEDS: FINASTERIDE 5 MG TAB PO SCH (07:43)
[2016-10-08] MEDS: CARVEDILOL 12.5 MG TAB PO SCH ×2 (07:43→20:24)
[2016-10-08] MEDS: TAMSULOSIN HCL 0.4 MG CAP PO SCH ×2 (07:43→20:24)
[2016-10-08 08:00] VITALS: O2SAT 97
[2016-10-08 14:35] VITALS: BP 147/85; PULSE 58; TEMP 36.2; O2SAT 96
--- NOTE | 2016-10-08 19:24 | DIAGNOSTIC IMAGING REPORT ---
TWO VIEW CHEST CLINICAL HISTORY: Follow pneumonia. FINDINGS: PA and lateral chest radiographs are compared to study dated 10/06/2016. The heart is enlarged and there is atherosclerotic calcification of the thoracic aorta. The pulmonary vasculature is noncongested. Patchy airspace opacities at the left lung base persistent largely cleared from 10/06/2016. No pleural effusion or pneumothorax is seen. The skeletal structures are osteopenic. The bony thorax appears intact. IMPRESSION: 1. There are minimal patchy airspace opacities at the left lung base, largely cleared from 10/06/2016. Continued follow-up to complete resolution is recommended. 2. Cardiomegaly without radiographic evidence of congestive failure. Electronically signed by: Flash Gonzales M.D. 10/08/2016 7:22 PM Dictated Date/Time: 10/08/2016 7:21 PM
[2016-10-08 20:23] VITALS: BP 160/82; PULSE 72
[2016-10-08] MEDS: SIMVASTATIN 10 MG TAB PO SCH (20:25)
[2016-10-08 23:00] VITALS: BP 166/52; PULSE 72; TEMP 36.4; O2SAT 93
--- NOTE | 2016-10-08 23:31 | Progress Note ---
Medicine Progress Note Date & Time of Visit: Oct 08, 2016 at 16:20 . Subjective Feels better, but still has persistent cough productive of blood-tinged sputum. No fever or chills. No shortness of breath. No chest pain. No nausea or vomiting. No abdominal pain. No further hematochezia. . Objective Last 8 Hrs Date Time Temp Pulse Resp B/P (MAP) Pulse Ox O2 Delivery O2 Flow Rate FiO2 10/08/16 23:00 36.4 72 18 166/52 (90) 93 Room Air 10/08/16 20:23 72 160/82 (108) 10/08/16 16:00 Room Air Physical Exam: General- sitting in chair; no distress Lungs- rales left base Heart- RRR Abdomen- normal bowel sounds, soft, nontender Extremities- no pretibial edema or calf tenderness Neuro- alert . Laboratory Results: Last 24 Hours Test 10/08/16 06:18 White Blood Count 14.47 K/uL Red Blood Count 4.55 M/uL Hemoglobin 12.7 g/dL Hematocrit 38.3 % Mean Corpuscular Volume 84.2 fL Mean Corpuscular Hemoglobin 27.9 pg Mean Corpuscular Hemoglobin Concent 33.2 g/dl RDW Standard Deviation 45.6 fL RDW Coefficient of Variation 14.8 % Platelet Count 168 K/uL Mean Platelet Volume 8.7 fL Sodium Level 141 mmol/L Potassium Level 4.8 mmol/L Chloride Level 110 mmol/L Carbon Dioxide Level 25 mmol/L Anion Gap 6.0 mmol/L Blood Urea Nitrogen 20 mg/dl Creatinine 1.40 mg/dl Est Creatinine Clear Calc Drug Dose 55.8 ml/min Estimated GFR () 56.2 Estimated GFR (Non- 48.5 BUN/Creatinine Ratio 14.3 Random Glucose 129 mg/dl Calcium Level 8.6 mg/dl Assessment & Plan ASPIRATION PNEUMONIA Persistent cough. Afebrile. Oxygenating well. Continue piperacillin/tazobactam and prednisone. Check follow-up chest x-ray. HYPERTENSION Continue lisinopril and carvedilol. BPH History of BPH managed with finasteride and tamsulosin. CT of abdomen and pelvis revealed marked prostatomegaly with heterogeneous appearance, thickening and trabeculation of bladder wall, bladder diverticuli. Recommend outpatient follow-up with Urology. VTE PROPHYLAXIS No anticoagulants due to colonoscopy with subsequent rectal bleeding. SCD's. Ambulate. DISPOSITION Expected discharge to home. Medical follow-up with Dr. Ross. . Current Inpatient Medications: Current Inpatient Medications Medications (Trade) Dose Ordered Sig/Eddie Route Start Time Stop Time Status Last Admin Dose Admin Acetaminophen (Tylenol Tab) 650 mg Q4H PRN PO 10/06/16 18:00 11/05/16 17:59 Ondansetron HCl (Zofran Inj) 4 mg Q6H PRN IV 10/06/16 18:00 11/05/16 17:59 Piperacillin Sod/ Tazobactam Sod (Consult) 1 ea UD PRN N/A 10/06/16 19:00 11/05/16 18:59 Sodium Chloride 1,000 ml @ 100 mls/hr Q10H IV 10/06/16 20:00 11/05/16 19:59 10/08/16 21:27 100 MLS/HR Prednisone (PredniSONE TAB) 40 mg HS PO 10/06/16 21:00 10/10/16 22:01 10/08/16 20:25 40 MG Carvedilol (Coreg Tab) 12.5 mg BID PO 10/06/16 20:00 11/05/16 20:59 10/08/16 20:24 12.5 MG Finasteride (Proscar Tab) 5 mg DAILY PO 10/07/16 08:00 11/06/16 08:59 10/08/16 07:43 5 MG Simvastatin (Zocor Tab) 10 mg HS PO 10/06/16 21:00 11/05/16 20:59 10/08/16 20:25 10 MG Tamsulosin HCl (Flomax Cap) 0.4 mg BID PO 10/06/16 20:00 11/05/16 20:59 10/08/16 20:24 0.4 MG Pantoprazole Sodium (Protonix Tab) 40 mg QAM PO 10/07/16 08:00 11/06/16 08:59 10/08/16 07:43 40 MG Piperacillin Sod/ Tazobactam Sod 4.5 gm/Dextrose 120 ml @ 30 mls/hr Q8H IV 10/06/16 22:00 10/13/16 21:59 10/08/16 21:27 30 MLS/HR
[2016-10-09] MEDS: PIPERACILL/TAZOBAC IV 4.5 GM in DEXTROSE 5% 100ML IV SCH ×2 (05:57→13:42)
[2016-10-09] MEDS: FINASTERIDE 5 MG TAB PO SCH (07:44)
[2016-10-09] MEDS: PANTOprazole SOD 40 MG TAB PO SCH (07:44)
[2016-10-09] MEDS: TAMSULOSIN HCL 0.4 MG CAP PO SCH (07:44)
[2016-10-09] MEDS: CARVEDILOL 12.5 MG TAB PO SCH (07:45)
[2016-10-09] MEDS: SODIUM CHLORIDE 0.9% 1000ML 1,000 ML IV SCH (07:45)
[2016-10-09 07:47] VITALS: BP 152/89; PULSE 72; TEMP 36.4; O2SAT 94
[2016-10-09 08:00] VITALS: O2SAT 94
[2016-10-09 08:06] LABS: CREATININE 1.3 mg/dl (0.60-1.40)
[2016-10-09 15:03] VITALS: BP 156/77; PULSE 62; TEMP 36.6; O2SAT 93
[2016-10-09 16:00] VITALS: O2SAT 93
--- NOTE | 2016-10-09 17:22 | Progress Note ---
Medicine Progress Note Date & Time of Visit: Oct 09, 2016 at 17:22 . Subjective Cough improved, minimal blood mixed with green sputum. No fever. No SOB. No anginal symptoms; no pleuritic chest pain. No nausea, vomiting, diarrhea. . Objective Last 8 Hrs Date Time Temp Pulse Resp B/P (MAP) Pulse Ox O2 Delivery O2 Flow Rate FiO2 10/09/16 15:03 36.6 62 18 156/77 (103) 93 Room Air Physical Exam: General- no distress Lungs- rales left base, no wheezing Heart- RRR Abdomen-+ BS, soft, nontender Extremities- no pretibial edema or calf tenderness Neuro- alert . Laboratory Results: Last 24 Hours Test 10/09/16 06:52 Creatinine 1.30 mg/dl Est Creatinine Clear Calc Drug Dose 60.1 ml/min Estimated GFR () 61.4 Estimated GFR (Non- 53.0 Assessment & Plan ASPIRATION PNEUMONIA / HYPOXIA Presented to ED with cough after experiencing nausea and vomiting during prep for colonoscopy. He was hypoxic with O2 sats as low as 88%. Blood cultures obtained. Started on IV antibiotic therapy with piperacillin/tazobactam. Also received prednisone. Repeat chest x-ray showed improvement of LLL infiltrate. Cough productive of blood-tinged sputum, but improving. Afebrile. Oxygenating well on RA. Discharge on amoxicillin / sulbactam and prednisone to complete 7 day course of therapy. Will need follow-up chest x-ray in 4 wks to assure resolution of LLL infiltrate. Hemoptysis probably secondary to pneumonia; will need further evaluation / consultation if it persists. HYPERTENSION Continue lisinopril and carvedilol. BPH History of BPH managed with finasteride and tamsulosin. CT of abdomen and pelvis revealed marked prostatomegaly with heterogeneous appearance, thickening and trabeculation of bladder wall, bladder diverticuli. Is followed by Urology at [facility]. VTE PROPHYLAXIS No anticoagulants due to colonoscopy with subsequent rectal bleeding. SCD's. Ambulate. DISPOSITION Discharge to home. Medical follow-up with Dr. Ross. Urology follow-up with [facility]. . Current Inpatient Medications: Current Inpatient Medications Medications (Trade) Dose Ordered Sig/Eddie Route Start Time Stop Time Status Last Admin Dose Admin Acetaminophen (Tylenol Tab) 650 mg Q4H PRN PO 10/06/16 18:00 11/05/16 17:59 Ondansetron HCl (Zofran Inj) 4 mg Q6H PRN IV 10/06/16 18:00 11/05/16 17:59 Piperacillin Sod/ Tazobactam Sod (Consult) 1 ea UD PRN N/A 10/06/16 19:00 11/05/16 18:59 Sodium Chloride 1,000 ml @ 100 mls/hr Q10H IV 10/06/16 20:00 11/05/16 19:59 10/09/16 07:45 100 MLS/HR Prednisone (PredniSONE TAB) 40 mg HS PO 10/06/16 21:00 10/10/16 22:01 10/08/16 20:25 40 MG Carvedilol (Coreg Tab) 12.5 mg BID PO 10/06/16 20:00 11/05/16 20:59 10/09/16 07:45 12.5 MG Finasteride (Proscar Tab) 5 mg DAILY PO 10/07/16 08:00 11/06/16 08:59 10/09/16 07:44 5 MG Simvastatin (Zocor Tab) 10 mg HS PO 10/06/16 21:00 11/05/16 20:59 10/08/16 20:25 10 MG Tamsulosin HCl (Flomax Cap) 0.4 mg BID PO 10/06/16 20:00 11/05/16 20:59 10/09/16 07:44 0.4 MG Pantoprazole Sodium (Protonix Tab) 40 mg QAM PO 10/07/16 08:00 11/06/16 08:59 10/09/16 07:44 40 MG Piperacillin Sod/ Tazobactam Sod 4.5 gm/Dextrose 120 ml @ 30 mls/hr Q8H IV 10/06/16 22:00 10/13/16 21:59 10/09/16 13:42 30 MLS/HR
[2016-10-09] MEDS ORDERED: LSN25 PO (17:26)
[2016-10-09] MEDS ORDERED: AMOX875T PO (17:28)
[2016-10-09] MEDS ORDERED: PRED10TA PO (17:28)
--- NOTE | 2016-10-09 17:39 | Discharge Instructions ---
Discharge Instructions Date of Service Oct 09, 2016. Admission Reason for Admission: aspiration pneumonia . Discharge Discharge Diagnosis / Problem: aspiration pneumonia Discharge Goals Goal(s): Decrease discomfort, Improve disease control Activity Recommendations Activity Limitations: resume your previous activity . Instructions / Follow-Up Instructions / Follow-Up APPOINTMENTS: FAMILY MEDIC[facility] Dr. Ross or her associate Please arrange for appointment next week for recheck. UROLOGY As scheduled. INSTRUCTIONS: New medications- amoxicillin / clavulanic acid (Augmentin) 1 pill twice a day for 4 days prednisone 10 mg pills, take 4 pills daily for 4 days (prescriptions sent to [facility]) Do breathing exercises every few hours while awake until better. Please ask Dr. Ross or her associate to order repeat chest x-ray to be done in about 4 weeks to make certain that pneumonia clears up. Please ask for a referral to a lung specialist (Insurance Claims Processor) if you have a persistent cough or persistent blood in your sputum. Please ask your Urologist to request copies of your CT scan done at [facility] on 10/06/16 so that they can review pictures of your prostate. Seek medical attention if you have: * temperature above 101 * chest pain or trouble breathing * persistent cough or persistent blood in sputum * abdominal pain, nausea, vomiting * diarrhea, dark stools or bloody stools * any unanswered questions or concerns Call 911 if symptoms are severe. Call if you have any questions or problems. My cell # is [phone]. You can also reach a [facility] hospitalist on duty at [facility] 24 hours a day by calling [phone]. Please take good care of yourself. [facility] . Current Hospital Diet Patient's current hospital diet: AHA Diet (Heart Healthy) Discharge Diet Recommended Diet: AHA Diet (Heart Healthy) Pending Studies Studies pending at discharge: no Medical Emergencies . Who to Call and When: Medical Emergencies: If at any time you feel your situation is an emergency, please call 911 immediately. . Non-Emergent Contact Non-Emergency issues call your: Primary Care Provider, Hospital Doctor . . "Provider Documentation" section prepared by [facility]. . VTE Core Measure Inpt VTE Proph given/why not?: SCD's
[2016-10-09 17:43] VITALS: BP 156/77; PULSE 62; TEMP 36.6; O2SAT 93
--- NOTE | 2016-10-10 07:30 | Discharge Summary ---
Discharge Summary Date of Service Oct 10, 2016. Discharge Summary Admission Date: October 06, 2016 at 17:49 Discharge Date: Oct 09, 2016 Discharge Disposition: Home Principal Diagnosis: aspiration pneumonia . Secondary Diagnoses/Problems: Current and Resolved Medical Problems: (1) BPH (benign prostatic hyperplasia) Status: Chronic (2) HLD (hyperlipidemia) Status: Chronic (3) HTN (hypertension) Status: Chronic . Procedures: IV FLUIDS IV MEDS CT HEAD IMPRESSION: No acute intracranial findings Electronically signed by: Duane Prado M.D. 10/06/2016 4:[address] ABDOMEN + PELVIS IMPRESSION: 1. There is patchy airspace consolidation at the left lung base, likely representing pneumonia/aspiration pneumonitis. 2. There are no acute infectious or inflammatory findings in the abdomen or pelvis. 3. Hepatic steatosis. 4. Cholelithiasis. 5. Advanced sigmoid diverticulosis without CT evidence of acute diverticulitis. 6. Marked prostatomegaly with evidence of chronic bladder outlet obstruction. Follow-up with serum PSA level assessment is recommended. 7. Additional findings as above. Electronically signed by: Flash Gonzales M.D. 10/06/2016 4:20 PM . Pending Studies/Follow-Up: Please check follow-up chest x-ray in 4 weeks re: LLL pneumonia. . Medication Reconciliation New Medications: Amoxicillin & Pot Clavulanate (Augmentin 875-125 mg) 1 Tab Tab 875 MG PO BID, #8 TAB Take twice a day with meals. Prednisone Tab (Prednisone) 10 Mg Tab 40 MG PO DAILY, #16 TAB Take 4 pills once a day for 4 days. Continued Medications: Carvedilol (Coreg) 12.5 Mg Tab 1 TAB PO BID, TAB Esomeprazole Magnesium (Nexium) 40 Mg Capcr 40 MG PO DAILY, CAP Finasteride (Proscar) 5 Mg Tab 1 TAB PO DAILY, TAB Lisinopril (Lisinopril) 2.5 Mg Tab 2.5 MG PO DAILY Simvastatin (Zocor) 10 Mg Tab 1 TAB PO HS, TAB Tamsulosin Hcl (Flomax) 0.4 Mg Cap 1 CAP PO BID, CAP Admission Information HPI (per Admitting provider): 76 year old male who presents to the ER with cough. Patient underwent a colonoscopy today for polyp follow up. Patient reports that while completing the prep yesterday his stomach felt very full. He reports he felt nauseous and had 3 episodes of vomiting. He reports being up most of the night due to persistent coughing. He was able to have the procedure done however was told he had a lot of coughing during the procedure as well. Patient reports he went home and started to feel poorly. He reports the cough was productive for a blood tinged mucous. He reports a mild frontal headache and mild generalized abdominal pain. He felt chilled but did not take his temperature. He denies chest pain or shortness of breath. No further vomiting. He denies nausea. No lightheadedness, dizziness, diaphoresis, or syncopal event. He reports chronic urinary frequency and hesitancy which is unchanged. In the ER, patient was hypoxic on room air at 88% which improved with 2L oxygen via NC. CXR is showing LLL consolidation. CT abd/pelvis is negative for acute findings. Creat is found to be 1.5 (normal baseline). WBC 15K. He was also tachycardic and tachypneic. He was given IVF, IV Zosyn, and Zofran. . Physical Exam (per Admitting): General Appearance: no apparent distress Head: normocephalic Eyes: normal inspection ENT: hearing grossly normal Neck: supple, no JVD Respiratory/Chest: no respiratory distress (able to speak in full sentenes) , + crackles (left mid and lower lung rocha) Cardiovascular: no edema, normal peripheral pulses, + tachycardia (HR in the 90s-low 100s, regular rhythm) Abdomen/GI: normal bowel sounds, non tender, soft, + distended Extremities/Musculoskelatal: normal inspection, no calf tenderness Neurologic/Psych: no motor/sensory deficits, alert, normal mood/affect, oriented x 3 Skin: normal color, warm/dry Hospital Course ASPIRATION PNEUMONIA / HYPOXIA Presented to ED with cough after experiencing nausea and vomiting during prep for colonoscopy. He was hypoxic with O2 sats as low as 88%. Blood cultures obtained. Started on IV antibiotic therapy with piperacillin/tazobactam. Also received prednisone. Repeat chest x-ray showed improvement of LLL infiltrate. Cough productive of blood-tinged sputum, but improving. Afebrile. Oxygenating well on RA. Discharge on amoxicillin / sulbactam and prednisone to complete 7 day course of therapy. Will need follow-up chest x-ray in 4 wks to assure resolution of LLL infiltrate. Hemoptysis probably secondary to pneumonia; will need further evaluation / consultation if it persists. HYPERTENSION Continue lisinopril and carvedilol. BPH History of BPH managed with finasteride and tamsulosin. CT of abdomen and pelvis revealed marked prostatomegaly with heterogeneous appearance, thickening and trabeculation of bladder wall, bladder diverticuli. Is followed by Urology at [facility]. VTE PROPHYLAXIS No anticoagulants due to colonoscopy with subsequent rectal bleeding. SCD's. Ambulate. DISPOSITION Discharge to home. Medical follow-up with Dr. Ross. Urology follow-up with [facility] [place]. . Total time spent on discharge = 40 min. This includes examination of the patient, discharge planning, medication reconciliation, and communication with other providers. . Discharge Instructions Date of Service Oct 09, 2016. Admission Reason for Admission: aspiration pneumonia . Discharge Discharge Diagnosis / Problem: aspiration pneumonia Discharge Goals Goal(s): Decrease discomfort, Improve disease control Activity Recommendations Activity Limitations: resume your previous activity . Instructions / Follow-Up Instructions / Follow-Up APPOINTMENTS: FAMILY MEDIC[facility] Dr. Ross or her associate Please arrange for appointment next week for recheck. UROLOGY As scheduled. INSTRUCTIONS: New medications- amoxicillin / clavulanic acid (Augmentin) 1 pill twice a day for 4 days prednisone 10 mg pills, take 4 pills daily for 4 days (prescriptions sent to [facility]) Do breathing exercises every few hours while awake until better. Please ask Dr. Ross or her associate to order repeat chest x-ray to be done in about 4 weeks to make certain that pneumonia clears up. Please ask for a referral to a lung specialist (Chief Information Officer) if you have a persistent cough or persistent blood in your sputum. Please ask your Urologist to request copies of your CT scan done at [facility] on 10/06/16 so that they can review pictures of your prostate. Seek medical attention if you have: * temperature above 101 * chest pain or trouble breathing * persistent cough or persistent blood in sputum * abdominal pain, nausea, vomiting * diarrhea, dark stools or bloody stools * any unanswered questions or concerns Call 911 if symptoms are severe. Call if you have any questions or problems. My cell # is [phone]. You can also reach a [facility] hospitalist on duty at [facility] 24 hours a day by calling [phone]. Please take good care of yourself. [facility] . Current Hospital Diet Patient's current hospital diet: AHA Diet (Heart Healthy) Discharge Diet Recommended Diet: AHA Diet (Heart Healthy) Pending Studies Studies pending at discharge: no Medical Emergencies . Who to Call and When: Medical Emergencies: If at any time you feel your situation is an emergency, please call 911 immediately. . Non-Emergent Contact Non-Emergency issues call your: Primary Care Provider, Hospital Doctor . . "Provider Documentation" section prepared by [facility]. . VTE Core Measure Inpt VTE Proph given/why not?: SCD's . Additional Copies To Jasmin Ross D.O.; Lacie Romero ., JAYNEC
== END 2016-10-09 18:45 | disposition home or self-care (01) | DRG 177 ==
LOC: ENRESERVDT → ENRESERVTM → C.EDB 14:57 → C.MS4W 17:49
PROVIDERS: ADMIT Hospitalist; ATTEND Hospitalist
DX: J69.0 Pneumonitis due to inhalation of food and vomit (principal); J96.01 Acute respiratory failure with hypoxia; N17.9 Acute kidney failure, unspecified; I10 Essential (primary) hypertension; N40.1 Benign prostatic hyperplasia with lower urinary tract symptoms; R39.11 Hesitancy of micturition; R35.0 Frequency of micturition; Z87.891 Personal history of nicotine dependence; Z79.899 Other long term (current) drug therapy